=== PATIENT | male | born 1985 | race American Indian/Alaskan Native ===

== ENCOUNTER 2017-09-20 19:50 | Emergency (ER) | payer OTHER ==
[2017-09-20 22:17] VITALS: BP 111/72
[2017-09-21] MEDS ORDERED: XYLOCAINE 1% 20 mL INFILTRATI ONE (00:40)
[2017-09-21] MEDS ORDERED: XYLOCAINE 2% INFILTRATI ONE ×2 (00:43)
[2017-09-21] MEDS ORDERED: BOOSTRIX IM ONE (01:04)
[2017-09-21] MEDS ORDERED: MOTRIN PO ONE (01:04)
[2017-09-21] MEDS ORDERED: TRIPLE ANTIBIOTIC TP ONE (01:04)
--- NOTE | 2017-09-21 01:11 | Emergency Department Report ---
- General Chief Complaint: Laceration/Recheck/Suture Stated Complaint: LT WRIST CUT Time Seen by Provider: 09/21/17 00:59 Source: patient Mode of arrival: Ambulatory Limitations: No Limitations - History of Present Illness Initial Comments: Note: there were delays in charting due to hospital wide downtime 32-year-old male past medical history none presents with complaint of left wrist laceration status post mechanical fall. Patient states that he tripped walking in home over child's toy fell down and forward and cut his left wrist on a nail sticking out of wall. Denies any other injuries. States that his tetanus is up-to-date as of 2016. Visible horizontal laceration across left wrist. Patient is awake alert and oriented 3, visible bleeding from rest. Onset/Timin -: hour(s), This evening Extremity Location: Left: Wrist 1 - lac here Associated Symptoms: none - Related Data Previous Rx's Medication Instructions Recorded Last Taken Type Bacitracin Zinc Oint [Antibiotic 1 applicatio TP BID #1 tube 09/21/17 Unknown Rx Oint] Cephalexin [Keflex] 500 mg PO Q12HR #14 cap 09/21/17 Unknown Rx Ibuprofen [Motrin] 600 mg PO Q8H PRN #30 tablet 09/21/17 Unknown Rx Allergies Allergy/AdvReac Type Severity Reaction Status Date / Time No Known Allergies Allergy Verified 09/21/17 00:40 ED Review of Systems ROS: Stated complaint: LT WRIST CUT Other details as noted in HPI Constitutional: denies: chills, fever Eyes: denies: eye pain, eye discharge, vision change ENT: denies: ear pain, throat pain Respiratory: denies: cough, shortness of breath, wheezing Cardiovascular: denies: chest pain, palpitations Endocrine: no symptoms reported Gastrointestinal: denies: abdominal pain, nausea, diarrhea Genitourinary: denies: urgency, dysuria Musculoskeletal: as per HPI. denies: back pain, joint swelling, arthralgia Skin: denies: rash, lesions Neurological: denies: headache, weakness, paresthesias Psychiatric: denies: anxiety, depression Hematological/Lymphatic: denies: easy bleeding, easy bruising ED Past Medical Hx - Past Medical History Previous Medical History?: No - Surgical History Past Surgical History?: No - Social History Smoking Status: Current Every Day Smoker Substance Use Type: None - Medications Home Medications: Home Medications Medication Instructions Recorded Confirmed Last Taken Type Bacitracin Zinc Oint [Antibiotic 1 applicatio TP BID #1 tube 09/21/17 Unknown Rx Oint] Cephalexin [Keflex] 500 mg PO Q12HR #14 cap 09/21/17 Unknown Rx Ibuprofen [Motrin] 600 mg PO Q8H PRN #30 tablet 09/21/17 Unknown Rx ED Physical Exam - General Limitations: No Limitations General appearance: alert, in no apparent distress - Head Head exam: Present: atraumatic, normocephalic - Eye Eye exam: Present: normal appearance, PERRL, EOMI - ENT ENT exam: Present: mucous membranes moist - Neck Neck exam: Present: normal inspection - Respiratory Respiratory exam: Present: normal lung sounds bilaterally. Absent: respiratory distress - Cardiovascular Cardiovascular Exam: Present: regular rate, normal rhythm. Absent: systolic murmur, diastolic murmur, rubs, gallop - GI/Abdominal GI/Abdominal exam: Present: soft, normal bowel sounds - Rectal Rectal exam: Present: deferred - Extremities Exam Extremities exam: Present: normal inspection - Expanded Upper Extremity Exam Left Shoulder Exam: Present: normal inspection, full ROM Upper Arm exam: Present: normal inspection, full ROM Elbow exam: Present: normal inspection, full ROM Forearm Wrist exam: Present: normal inspection, full ROM Hand Wrist exam: Present: full ROM (wrist flexion and extension intact), tenderness (tenderness distal aspect left wrist), laceration (horizontal left wrist laceration) Hand L/R Front: 1 - Positive: laceration (laceration across), abrasion Neuro motor exam: Present: wrist extension intact, thumb opposition intact, thumb IP flexion intact, thumb adduction intact, fingers 2-5 abduction intact Neurosensory exam: Present: radial nerve intact, ulnar nerve intact, median nerve intact Vascular: Present: normal capillary refill (distal capillary refill less than one second all fingers), radial pulse (distal radial pulse is intact, distal ulnar pusle intact) - Back Exam Back exam: Present: normal inspection - Neurological Exam Neurological exam: Present: alert, oriented X3, CN II-XII intact, normal gait - Psychiatric Psychiatric exam: Present: normal affect, normal mood - Skin Skin exam: Present: warm, dry, intact, normal color. Absent: rash ED Course Vital Signs 09/20/17 22:14 Temperature 99.2 F Pulse Rate 79 Respiratory 16 Rate Blood Pressure 111/72 O2 Sat by Pulse 98 Oximetry - Laceration /Wound Repair Left Distal Volar Wrist Wound Location: upper extremity (distal left wrist) Wound Length (cm): 6 Wound's Depth, Shape: linear Irrigated w/ Saline (ccs): 1,000 Betadine Prep?: Yes Anesthesia: Lidocaine w/ Epi Volume Anesthetic (ccs): 5 Wound Repaired With: sutures Suture Size/Type: 3:0, nylon Number of Sutures: 7 Layer Closure?: No Sterile Dressing Applied?: Yes (triple ABX) Progress: Area infiltrated with lidocaine with epinephrine, good local anesthesia achieved , 7 Prolene sutures placed with good closure of wound. Procedure tolerated well with minimal bleeding. ED Medical Decision Making - Medical Decision Making A/P: Left wrist laceration 1-sutures to be removed in 7-10 days 2-tetanus up to date 3-Motrin when necessary, triple antibiotic ointment, course of keflex 4- pt advised to return to the ED for any fevers chills pus drainage erythema at site of laceration Critical care attestation.: If time is entered above; I have spent that time in minutes in the direct care of this critically ill patient, excluding procedure time. ED Disposition Clinical Impression: Laceration of left wrist Qualifiers: Encounter type: initial encounter Qualified Code(s): S61.512A - Laceration without foreign body of left wrist, initial encounter Disposition: TO HOME OR SELFCARE Is pt being admited?: No Does the pt Need Aspirin: No Condition: Stable Instructions: Suture Care (ED), Laceration (ED) Additional Instructions: Return to the ED in 7-10 days for suture removal Prescriptions: Bacitracin Zinc Oint [Antibiotic Oint] 1 applicatio TP BID #1 tube Cephalexin [Keflex] 500 mg PO Q12HR #14 cap Ibuprofen [Motrin] 600 mg PO Q8H PRN #30 tablet PRN Reason: Pain Referrals: [facility] [Provider Group] - 3-5 Days [facility] [Outside] - 3-5 Days Time of Disposition: 01:04
== END 2017-09-21 02:15 | disposition home or self-care (01) ==
LOC: ED 19:50
DX: S61.512A Laceration without foreign body of left wrist, initial encounter (principal); W18.30XA Fall on same level, unspecified, initial encounter; Y93.89 Activity, other specified; Y92.89 Other specified places as the place of occurrence of the external cause; Y99.8 Other external cause status
CPT/HCPCS: 90471; 90715; 99282; A6250

== ENCOUNTER 2018-04-18 16:38 | Emergency (ER) | payer SELFPAY ==
[2018-04-18 16:48] VITALS: BP 115/59
[2018-04-18] MEDS ORDERED: TORADOL IM ONE (17:36)
--- NOTE | 2018-04-18 18:25 | XRay Report ---
FINAL REPORT EXAM: XR FOREARM RT HISTORY: acute injury, swelling TECHNIQUE: AP and lateral radiographs of the right forearm. PRIORS: None. FINDINGS: There is an acute, transverse fracture through the right distal ulna diaphysis with mild anterior displacement of the distal fracture fragment. No dislocation. Normal mineralization. There is soft tissue swelling surrounding the right distal forearm. Lunotriquetral coalition is noted. IMPRESSION: 1. Acute right distal ulna fracture. 2. Lunotriquetral coalition.
--- NOTE | 2018-04-18 18:36 | Emergency Department Report ---
ED Extremity Problem HPI - General Chief complaint: Extremity Injury, Upper Stated complaint: RIGHT ARM INJURY Time Seen by Provider: 04/18/18 17:29 Source: patient Mode of arrival: Ambulatory Limitations: No Limitations - History of Present Illness Initial comments: Patient is a 33-year-old -British male who was play wrestling with a friend and he fell and hit his right upper extremity on on a table. Patient heard a snap and is having pain with movement. Patient states is 7 out of 10 pain. Patient has no other injuries at this time. Severity scale (0 -10): 5 - Related Data Previous Rx's Medication Instructions Recorded Last Taken Type Bacitracin Zinc Oint [Antibiotic 1 applicatio TP BID #1 tube 09/21/17 Unknown Rx Oint] Cephalexin [Keflex] 500 mg PO Q12HR #14 cap 09/21/17 Unknown Rx Ibuprofen [Motrin] 600 mg PO Q8H PRN #30 tablet 09/21/17 Unknown Rx HYDROcodone/APAP 5-325 [Chili 1 each PO Q6HR PRN #15 tablet 04/18/18 Unknown Rx 5/325] Ibuprofen [Motrin] 800 mg PO Q8HR PRN #20 tablet 04/18/18 Unknown Rx Allergies Allergy/AdvReac Type Severity Reaction Status Date / Time No Known Allergies Allergy Verified 09/21/17 00:40 ED Review of Systems ROS: Stated complaint: RIGHT ARM INJURY Other details as noted in HPI Comment: All other systems reviewed and negative ED Past Medical Hx - Past Medical History Previous Medical History?: No - Surgical History Additional Surgical History: R hand - Social History Smoking Status: Current Every Day Smoker Substance Use Type: None - Medications Home Medications: Home Medications Medication Instructions Recorded Confirmed Last Taken Type Bacitracin Zinc Oint [Antibiotic 1 applicatio TP BID #1 tube 09/21/17 Unknown Rx Oint] Cephalexin [Keflex] 500 mg PO Q12HR #14 cap 09/21/17 Unknown Rx Ibuprofen [Motrin] 600 mg PO Q8H PRN #30 tablet 09/21/17 Unknown Rx HYDROcodone/APAP 5-325 [[place] 1 each PO Q6HR PRN #15 tablet 04/18/18 Unknown Rx 5/325] Ibuprofen [Motrin] 800 mg PO Q8HR PRN #20 tablet 04/18/18 Unknown Rx ED Physical Exam - General Limitations: No Limitations General appearance: alert, in no apparent distress - Head Head exam: Present: atraumatic, normocephalic - Eye Eye exam: Present: normal appearance - ENT ENT exam: Present: mucous membranes moist - Neck Neck exam: Present: normal inspection - Respiratory Respiratory exam: Present: normal lung sounds bilaterally. Absent: respiratory distress - Cardiovascular Cardiovascular Exam: Present: regular rate, normal rhythm. Absent: systolic murmur, diastolic murmur, rubs, gallop - GI/Abdominal GI/Abdominal exam: Present: soft, normal bowel sounds - Rectal Rectal exam: Present: deferred - Extremities Exam Extremities exam: Present: normal inspection, tenderness (pain at the mid forearm.). Absent: full ROM - Back Exam Back exam: Present: normal inspection - Neurological Exam Neurological exam: Present: alert, oriented X3 - Psychiatric Psychiatric exam: Present: normal affect, normal mood - Skin Skin exam: Present: warm, dry, intact, normal color. Absent: rash ED Course Vital Signs 04/18/18 16:42 Temperature 98.6 F Pulse Rate 102 H Respiratory 20 Rate Blood Pressure 115/59 O2 Sat by Pulse 96 Oximetry ED Medical Decision Making - Radiology Data Patient has midshaft slightly displaced ulnar fracture - Medical Decision Making She was splinted in a sugar tong splint will be discharged home with follow-up with orthopedics. Critical care attestation.: If time is entered above; I have spent that time in minutes in the direct care of this critically ill patient, excluding procedure time. ED Disposition Clinical Impression: Ulna fracture Qualifiers: Encounter type: initial encounter Ulna location: shaft Fracture type: closed Fracture morphology: oblique Fracture alignment: displaced Laterality: right Qualified Code(s): S52.231A - Displaced oblique fracture of shaft of right ulna , initial encounter for closed fracture Disposition: DC-01 TO HOME OR SELFCARE Is pt being admited?: No Does the pt Need Aspirin: No Condition: Stable Instructions: Arm Fracture in Adults (ED) Referrals: BISHOP DONNELLY MD [Staff Physician] - 3-5 Days
== END 2018-04-18 18:43 | disposition home or self-care (01) ==
LOC: ED 16:38
DX: S52.231A Displaced oblique fracture of shaft of right ulna, initial encounter for closed fracture (principal); F17.200 Nicotine dependence, unspecified, uncomplicated; W18.09XA Striking against other object with subsequent fall, initial encounter; Y93.72 Activity, wrestling; Y99.8 Other external cause status; Y92.89 Other specified places as the place of occurrence of the external cause
CPT/HCPCS: 29125; 73090; 96372; 99284; J1885

== ENCOUNTER 2019-08-17 01:32 | Emergency (ER) | payer OTHER ==
[2019-08-17 01:43] VITALS: BP 118/73
== END 2019-08-17 03:00 | disposition left against medical advice (07) ==
LOC: ED 01:32
DX: R07.89 Other chest pain (principal); Z53.21 Procedure and treatment not carried out due to patient leaving prior to being seen by health care provider